=== PATIENT | male | born 1950 | race African-American/Black ===

== ENCOUNTER 2017-08-01 16:41 | Emergency (ER) | payer OTHER ==
[~2017-08-01 16:41] MED LIST: EPINEPHRINE 0.1MG/ML (1:10,000) 10ML SYR ONE
[2017-08-01] MEDS ORDERED: SODIUM CHLORIDE 0.9% 1,000 ML IV ONE (17:16)
[2017-08-01] MEDS ORDERED: PANTOPRAZOLE SODIUM 40 MG/VIAL IV STA (17:16)
[2017-08-01 17:23] VITALS: BP 120/73
[2017-08-01] MEDS ORDERED: ADENOSINE 6 MG/2ML SYRINGE IV ONE (17:59)
[2017-08-01] MEDS ORDERED: ADENOSINE 3 MG/ML 2ML VIAL IV ONE (18:00)
[2017-08-01] MEDS ORDERED: EPINEPHRINE 0.1MG/ML (1:10,000) 10ML SYR ONE ×2 (18:43→18:55)
[2017-08-01] MEDS ORDERED: VASOPRESSIN 10 UNIT in SODIUM CHLORIDE 0.9% 99.5 ML IV STA (18:43)
[2017-08-01] MEDS ORDERED: OCTREOTIDE ACETATE 50 MCG/ML 1ML IV STA (18:43)
[2017-08-01] MEDS ORDERED: OCTREOTIDE 1,000 MCG in SODIUM CHLORIDE 0.9% 100 ML IV STA (18:43)
[2017-08-01 18:50] LABS: CHLORIDE 106 mEq/L (98-107); ETHANOL BLOOD < 10 mg/dL
[2017-08-01 18:51] LABS: CARBON DIOXIDE 6 mEq/L (21-32)
[2017-08-01 19:05] LABS: MEAN CORPUSCULAR HEMOGLOBIN 30.6 pg (28.0-32.0); MEAN PLATELET VOLUME 7.8 fl (7.4-10.4); PLATELET 68 x1000/uL (130-400); RED BLOOD CELL COUNT 1.05 mill/uL (4.7-6.1); RED CELL DISTRIBUTION WIDTH 20.3 % (11.6-14.6)
[2017-08-01 19:08] LABS: HEMATOCRIT. 11.4 % (42.0-52.0); HEMOGLOBIN. 3.2 g/dL (14.0-18.0)
[2017-08-01 19:13] LABS: INR 2.4; PROTHROMBIN TIME 25.3 sec (9.4-11.6)
[2017-08-01 20:27] LABS: PLATELET ESTIMATE MARKEDLY DECREASED
== END 2017-08-01 18:55 | disposition expired ==
LOC: ER 16:41
DX: I46.9 Cardiac arrest, cause unspecified (principal); C22.9 Malignant neoplasm of liver, not specified as primary or secondary; I47.1 Supraventricular tachycardia; E11.9 Type 2 diabetes mellitus without complications; E78.00 Pure hypercholesterolemia, unspecified; I10 Essential (primary) hypertension; E03.9 Hypothyroidism, unspecified; D63.0 Anemia in neoplastic disease; D69.6 Thrombocytopenia, unspecified
CPT/HCPCS: 31500; 36415; 36556; 71010; 80053; 82962; 83690; 85025; 85610; 86850; 86900; 86901; 86920; 93005; 99285; G0482; J0153; J0171; J2354; J3490; J7030; J7050